=== PATIENT | male | born 1950 | race Caucasian/White ===

== ENCOUNTER 2020-06-24 06:28 | Day surgery (SDC) | payer MEDICARE, BC ==
[~2020-06-24] VITALS: Ht 177.8 cm; Wt 101.8 kg
[~2020-06-24 06:28] MED LIST: AMLO-150 PO; ARMOUR THYROID PO; ATOR20TA37 PO; HYDR-3240 PO; LANS30CA PO; LOSA100T14 PO; MV-M1TAB16 PO; SOTA120T26 PO; WARF2.5T2 PO; WARF5TAB2 PO
[2020-06-24] MEDS ORDERED: SODIUM CHLORIDE 0.9% 1,000 ML IV ONE (07:00)
[2020-06-24 07:02] VITALS: BP 120/83
[2020-06-24] MEDS ORDERED: CHOL20009 PO (07:17)
[2020-06-24] MEDS ORDERED: SOTA80TA PO (07:17)
[2020-06-24] MEDS ORDERED: HYDR25TA6 PO (07:17)
[2020-06-24] MEDS ORDERED: METF500T17 PO (07:17)
[2020-06-24] MEDS ORDERED: LANS30CA60 PO (07:17)
[2020-06-24] MEDS ORDERED: LEVO75TA PO (07:17)
[2020-06-24 07:31] LABS: ANION GAP 9 mmol/L (5-15); CHLORIDE 105 mmol/L (98-107); CREATININE 1.28 mg/dL (0.7-1.3)
[2020-06-24 07:39] LABS: INTERNATIONAL NORMALIZED RATIO 2.63 (0.93-1.1); PROTHROMBIN TIME 27.4 Seconds (9.6-11.5)
[2020-06-24] MEDS ORDERED: PROPOFOL 10 MG/ML, 20ML ONE (07:55)
== END 2020-06-24 09:43 | disposition home or self-care (01) ==
LOC: CACL 06:28
PROVIDERS: ATTEND Internal Medicine Clinical Cardiac Electrophysiology
DX: I48.19 Other persistent atrial fibrillation (principal); Z20.828 Contact with and (suspected) exposure to other viral communicable diseases; I08.0 Rheumatic disorders of both mitral and aortic valves; I10 Essential (primary) hypertension; E11.9 Type 2 diabetes mellitus without complications; E78.5 Hyperlipidemia, unspecified; E03.9 Hypothyroidism, unspecified; K21.9 Gastro-esophageal reflux disease without esophagitis; E66.3 Overweight; Z68.32 Body mass index [BMI] 32.0-32.9, adult; Z79.01 Long term (current) use of anticoagulants; Z79.84 Long term (current) use of oral hypoglycemic drugs; Z79.890 Hormone replacement therapy; Z79.899 Other long term (current) drug therapy
CPT/HCPCS: 36415; 80048; 85610; 87635; 92960; 93005; 93312; 93321; 93325; J2704

== ENCOUNTER → 2021-03-30 | Outpatient (CLI) | payer MEDICARE, BC ==
[~2021-03-30] MED LIST changes: +CHOL20009 PO; +HYDR-2214 PO; -HYDR-3240 PO; +HYDR25TA6 PO; +LANS30CA60 PO; +LEVO75TA PO; +METF500T17 PO; +SOTA80TA PO
== END | disposition home or self-care (01) ==
LOC: CFH 12:54
PROVIDERS: ATTEND Internal Medicine Clinical Cardiac Electrophysiology
DX: I08.8 Other rheumatic multiple valve diseases (principal); I48.19 Other persistent atrial fibrillation; I10 Essential (primary) hypertension; E78.5 Hyperlipidemia, unspecified; E11.9 Type 2 diabetes mellitus without complications; Z79.01 Long term (current) use of anticoagulants
CPT/HCPCS: 93306

== ENCOUNTER 2021-04-29 06:14 | Day surgery (SDC) | payer MEDICARE, BC ==
[~2021-04-29] VITALS: Ht 177.8 cm; Wt 98.6 kg
[2021-04-29] MEDS ORDERED: Vitamin D PO (06:51)
[2021-04-29 06:52] VITALS: BP 140/90
[2021-04-29] MEDS ORDERED: SODIUM CHLORIDE 0.9% 1,000 ML IV SCH (07:00)
[2021-04-29 07:26] LABS: INTERNATIONAL NORMALIZED RATIO 3.05 (0.93-1.1); PROTHROMBIN TIME 30.9 Seconds (9.6-11.5)
[2021-04-29 07:38] LABS: ANION GAP 7 mmol/L (5-15); CALCIUM 9.2 mg/dL (8.5-10.1); CHLORIDE 102 mmol/L (98-107)
[2021-04-29] MEDS ORDERED: PROPOFOL 10 MG/ML, 20ML ONE ×2 (07:39→12:24)
[2021-04-29 07:41] LABS: CREATININE 1.16 mg/dL (0.7-1.3)
== END 2021-04-29 09:18 | disposition home or self-care (01) ==
LOC: CACL 06:14
PROVIDERS: ATTEND Internal Medicine Clinical Cardiac Electrophysiology
DX: I48.19 Other persistent atrial fibrillation (principal); I34.0 Nonrheumatic mitral (valve) insufficiency; I10 Essential (primary) hypertension; E11.9 Type 2 diabetes mellitus without complications; E78.5 Hyperlipidemia, unspecified; E03.9 Hypothyroidism, unspecified; E66.3 Overweight; Z68.32 Body mass index [BMI] 32.0-32.9, adult; Z20.822 Contact with and (suspected) exposure to COVID-19; Z79.01 Long term (current) use of anticoagulants; Z79.84 Long term (current) use of oral hypoglycemic drugs; Z79.890 Hormone replacement therapy; Z79.899 Other long term (current) drug therapy
CPT/HCPCS: 36415; 80048; 85610; 87635; 92960; 93005; 93312; 93321; 93325; J2704

== ENCOUNTER → 2021-07-08 | Outpatient (CLI) | payer MEDICARE, BC ==
[~2021-07-08] MED LIST changes: +OMNIPAQUE 350 MG/ML, 150 ML BOTTLE ONE; +Vitamin D PO
== END | disposition home or self-care (01) ==
LOC: CFH 09:13
PROVIDERS: ATTEND Internal Medicine Clinical Cardiac Electrophysiology
DX: I25.10 Atherosclerotic heart disease of native coronary artery without angina pectoris (principal); I48.19 Other persistent atrial fibrillation; K44.9 Diaphragmatic hernia without obstruction or gangrene; M47.814 Spondylosis without myelopathy or radiculopathy, thoracic region
CPT/HCPCS: 71046; 75572; Q9967

== ENCOUNTER → 2021-07-08 | Outpatient (CLI) | payer MEDICARE, BC ==
[~2021-07-08] MED LIST changes: -OMNIPAQUE 350 MG/ML, 150 ML BOTTLE ONE
== END | disposition home or self-care (01) ==
LOC: STAR 10:35
PROVIDERS: ATTEND Internal Medicine Clinical Cardiac Electrophysiology
DX: Z01.812 Encounter for preprocedural laboratory examination (principal); Z20.822 Contact with and (suspected) exposure to COVID-19
CPT/HCPCS: 36415; 87635

== ENCOUNTER 2021-07-12 11:25 | Observation (INO) | payer MEDICARE, BC ==
[~2021-07-12] VITALS: Ht 177.8 cm; Wt 100.9 kg
[2021-07-12] MEDS ORDERED: LEVO75TA PO (12:00)
[2021-07-12] MEDS ORDERED: FURO-93 PO (12:00)
[2021-07-12] MEDS ORDERED: POTA10TA6 PO (12:00)
[2021-07-12] MEDS ORDERED: PLEASE ENTER HEIGHT AND WEIGHT MC SCH (12:00)
[2021-07-12] MEDS ORDERED: SODIUM CHLORIDE 0.9% 1,000 ML IV SCH (12:00)
[2021-07-12 12:13] VITALS: BP 143/81
[2021-07-12 12:36] LABS: BASOPHILS % (AUTO) 0 % (0-1); EOSINOPHILS % (AUTO) 1 % (1-7); LYMPHOCYTES % (AUTO) 18 % (22-44); MEAN CORPUSCULAR HEMOGLOBIN 31.8 pg (27.5-34.5); MEAN CORPUSCULAR HGB CONC 35.4 g/dL (33.2-36.2); MEAN PLATELET VOLUME 8.5 fL (7.4-10.4); MONOCYTES % (AUTO) 6 % (2-9); NEUTROPHILS % (AUTO) 75 % (42-75); PLATELET COUNT 199 x10^3/uL (130-400); RED BLOOD COUNT 5.15 x10^6/uL (4.38-5.82)
[2021-07-12 12:46] LABS: ALANINE AMINOTRANSFERASE 30 U/L (12-78); ALBUMIN 4.2 g/dL (3.4-5.0); ANION GAP 8 mmol/L (5-15); CALCIUM 9.1 mg/dL (8.5-10.1); CHLORIDE 105 mmol/L (98-107); INTERNATIONAL NORMALIZED RATIO 1.47 (0.93-1.1); PROTHROMBIN TIME 15.4 Seconds (9.6-11.5)
[2021-07-12 12:48] LABS: ALKALINE PHOSPHATASE 105 U/L (45-117); BILIRUBIN,TOTAL 1.1 mg/dL (0.2-1.0); TOTAL PROTEIN 7.7 g/dL (6.4-8.2)
[2021-07-12] MEDS ORDERED: FENTANYL PF 100 MCG/2ML ONE (13:07)
[2021-07-12] MEDS ORDERED: SUGAMMADEX 200 MG/2 ML IVPush ONE (13:13)
[2021-07-12] MEDS ORDERED: SUCCINYLCHOLINE 20 MG/ML, 10ML ONE (13:27)
[2021-07-12] MEDS ORDERED: ONDANSETRON 2MG/ML, 2ML ONE (13:27)
[2021-07-12] MEDS ORDERED: ROCURONIUM 10MG/ML,5ML ONE ×3 (13:27→17:04)
[2021-07-12] MEDS ORDERED: DEXAMETHASONE 4 MG/ML, 1ML ONE (13:27)
[2021-07-12] MEDS ORDERED: PROPOFOL 10 MG/ML, 20ML ONE (13:27)
[2021-07-12] MEDS ORDERED: HEPARIN 1,000 UNITS/ML, 10ML ONE ×2 (13:34)
[2021-07-12] MEDS ORDERED: ACETAMINOPHEN 325 MG TABLET PO PRN (14:00)
[2021-07-12] MEDS ORDERED: hydrALAzine 20 MG/ML, 1ML IV PRN (14:00)
[2021-07-12] MEDS ORDERED: EPHEDRINE 50 MG/ML, 1ML IVPush PRN (14:00)
[2021-07-12] MEDS ORDERED: PROMETHAZINE 25 MG/ML, 1ML IVPush PRN (14:00)
[2021-07-12] MEDS ORDERED: HYDROmorphone 1 MG/ML, 1ML INJ IVPush PRN (14:00)
[2021-07-12] MEDS ORDERED: ONDANSETRON 2MG/ML, 2ML IVPush PRN ×2 (14:00→18:00)
[2021-07-12] MEDS ORDERED: OXYcodone 5 MG/5 ML ORAL.SOL UDC PO PRN (14:00)
[2021-07-12] MEDS ORDERED: LABETALOL 5MG/ML, 20ML IV PRN (14:00)
[2021-07-12] MEDS ORDERED: FENTANYL PF 100 MCG/2ML IV PRN (14:00)
[2021-07-12] MEDS: APIXABAN 5 MG TABLET PO SCH ×2 (17:54→21:11)
[2021-07-12] MEDS ORDERED: ZOLPIDEM 5MG TABLET PO PRN (18:00)
[2021-07-12] MEDS ORDERED: PANTOPRAZOLE 20MG TABLET PO ONE (18:00)
[2021-07-12] MEDS ORDERED: APIXABAN 5 MG TABLET ONE (18:05)
[2021-07-12] MEDS ORDERED: ATORVASTATIN 20 MG TABLET PO SCH (21:00)
[2021-07-12] MEDS: SOTALOL 80MG TABLET PO SCH (21:10)
[2021-07-12] MEDS: COLCHICINE 0.6 MG CAPSULE PO SCH (21:11)
[2021-07-13 01:08] VITALS: BP 133/86
[2021-07-13] MEDS: ACETAMINOPHEN 325 MG TABLET PO PRN ×2 (02:30→13:35)
[2021-07-13] MEDS ORDERED: LEVOTHYROXINE 75 MCG TABLET PO SCH ×2 (06:00)
[2021-07-13 06:53] VITALS: BP 128/79
[2021-07-13] MEDS ORDERED: PANTOPRAZOLE 40MG TABLET PO SCH (07:30)
[2021-07-13] MEDS ORDERED: FUROSEMIDE 20 MG TABLET PO SCH (09:00)
[2021-07-13] MEDS ORDERED: COLC0.6C3 PO (10:39)
[2021-07-13] MEDS ORDERED: RIVA20TA PO (10:39)
[2021-07-13 10:49] VITALS: BP 127/78
[2021-07-13] MEDS: COLCHICINE 0.6 MG CAPSULE PO SCH ×3 (10:50→12:12)
[2021-07-13] MEDS: SOTALOL 80MG TABLET PO SCH (10:51)
[2021-07-13] MEDS: APIXABAN 5 MG TABLET PO SCH (10:52)
[2021-07-13 12:20] VITALS: BP 127/78
[2021-07-13] MEDS ORDERED: LORATADINE 10 MG TABLET PO ONE (13:00)
== END 2021-07-13 15:25 | disposition home or self-care (01) ==
LOC: CACL 11:25 → 5SO 17:36 → CACL 17:36 → 5SO 17:39
PROVIDERS: ADMIT Internal Medicine Clinical Cardiac Electrophysiology; ATTEND Internal Medicine Clinical Cardiac Electrophysiology
DX: I48.0 Paroxysmal atrial fibrillation (principal); I48.19 Other persistent atrial fibrillation; I10 Essential (primary) hypertension; E11.9 Type 2 diabetes mellitus without complications; E78.5 Hyperlipidemia, unspecified; E03.9 Hypothyroidism, unspecified; Z79.01 Long term (current) use of anticoagulants; Z79.899 Other long term (current) drug therapy
CPT/HCPCS: 36415; 80053; 85025; 85610; 85730; 93005; 93308; 93312; 93321; 93325; G0378; J0330; J1100; J1644; J2405; J2704; J3010